=== PATIENT | male | born 1975 ===

== ENCOUNTER 2017-05-18 16:17 | Emergency (ER) | payer SELFPAY ==
[2017-05-18 16:32] VITALS: RESP 18; TEMP 98
[2017-05-18] MEDS ORDERED: Fluorescein 1 mg Ophthalmic Strip OU STA (16:47)
[2017-05-18] MEDS ORDERED: Tetracaine 0.5% Ophth (OR ONLY) OU STA (16:47)
--- NOTE | 2017-05-18 16:47 | C.PDOC ---
History Of Present Illness 41yo male, presents to the ED for evaluation of foreign body sensation in his right eye since earlier this afternoon. Patient reports he works in construction and believes a piece of wood might have flown in his eye. He denies any vision changes, photophobia. Time Seen by Provider: 05/18/17 16:35 Chief Complaint (Nursing): Eye Problem History Per: Patient History/Exam Limitations: no limitations Onset/Duration Of Symptoms: Hrs Current Symptoms Are (Timing): Still Present Injury To Eye?: No Wears Contact Lens?: No Associated Symptoms: FB Sensation. denies: Decreased Vision Past Medical History Reviewed: Historical Data, Nursing Documentation, Vital Signs Vital Signs: Last Vital Signs Temp 98.0 F 05/18/17 16:30 Pulse 70 05/18/17 16:30 Resp 18 05/18/17 16:30 BP 118/66 05/18/17 16:30 Pulse Ox 100 05/18/17 16:53 - Medical History PMH: No Chronic Diseases Surgical History: No Surg Hx Family History: States: No Known Family Hx - Social History Hx Alcohol Use: No Hx Substance Use: No Review Of Systems Except As Marked, All Systems Reviewed And Found Negative. Eyes: Positive for: Other (right eye foreign body sensation). Negative for: Vision Change Physical Exam - Physical Exam Appears: Non-toxic, No Acute Distress Skin: Normal Color Eye(s): bilateral: Normal Inspection, PERRL, EOMI, Other (no hyphema noted) Cardiovascular: Rhythm Regular Respiratory: Normal Breath Sounds Neurological/Psych: Oriented x3 ED Course And Treatment O2 Sat by Pulse Oximetry: 100 (RA) Pulse Ox Interpretation: Normal Disposition Counseled Patient/Family Regarding: Diagnosis, Need For Followup, Rx Given - Disposition Referrals: Nolberto Whitlock [Staff Provider] - Disposition: HOME/ ROUTINE Disposition Time: 17:04 Condition: IMPROVED Prescriptions: Ibuprofen [Motrin] 600 mg PO Q6 #30 tab Polymyxin/Trimethoprim Sulfate [Polytrim Ophth Soln] 1 drop OD Q3H #1 bottle Instructions: Eye Pain (ED) Forms: [facility] (Bel[place]ian), Work Excuse Print Language: MALTESE - Clinical Impression Clinical Impression: Pain in eye - Scribe Statement The provider has reviewed the documentation as recorded by the Miesha Rivera Provider Attestation: All medical record entries made by the Scribe were at my direction and personally dictated by me. I have reviewed the chart and agree that the record accurately reflects my personal performance of the history, physical exam, medical decision making, and the department course for this patient. I have also personally directed, reviewed, and agree with the discharge instructions and disposition. Eye Treatment - Treatment Performed Eye Treatment: Other: (TETRACAINE) Procedures - Eye Procedure Alcaine Drops Administered: Yes Eye Irrigated w/ Saline (ccs): 100 Progress: FLUORESCEIN APPLIED, EXAMINED W NG LAMP. NO FB, GLOBE RUPTURE OR ABRASION
[2017-05-18] MEDS ORDERED: Fluorescein 1 mg Ophthalmic Strip ONE (16:57)
[2017-05-18] MEDS ORDERED: Tetracaine 0.5% Ophth (OR ONLY) ONE (16:57)
[2017-05-18 17:12] VITALS: BP 112/73; PULSE 72; O2SAT 99
== END 2017-05-18 17:18 | disposition home or self-care (01) ==
LOC: C.ER 16:17
DX: H57.11 Ocular pain, right eye (principal)